=== PATIENT | female | born 2000 | race American Indian/Alaskan Native ===

== ENCOUNTER 2020-09-13 09:31 | Emergency (ER) | payer SELFPAY ==
[2020-09-13 09:37] VITALS: BP 126/74
[2020-09-13 10:15] LABS: Basophils % (Auto) 0.7 % (0.0-1.8); Eosinophils # (Auto) 0.1 K/mm3 (0.0-0.4); Hematocrit 42.1 % (30.3-42.9); Hemoglobin 14.1 gm/dl (10.1-14.3); Lymphocytes # (Auto) 1.8 K/mm3 (1.2-5.4); Lymphocytes % (Auto) 39.6 % (13.4-35.0); Mean Corpuscular HGB Conc 34 % (30-34); Mean Corpuscular Volume 82 fl (79-97); Monocytes # (Auto) 0.4 K/mm3 (0.0-0.8); Monocytes % (Auto) 8.5 % (0.0-7.3); Platelet Count 230 K/mm3 (140-440); Red Blood Count 5.11 M/mm3 (3.65-5.03); Red Cell Distribution Width 13.2 % (13.2-15.2)
[2020-09-13] MEDS ORDERED: LIDOCAINE VISCOUS 2% 15 ML ORAL LIQD PO ONE (10:43)
[2020-09-13] MEDS ORDERED: FAMOTIDINE 20 MG TAB PO ONE (10:43)
[2020-09-13] MEDS ORDERED: ALUM-MAG HYDROXIDE-SIMETHICONE 200-200-20MG/5ML ORAL LIQD 30 ML PO ONE (10:43)
--- NOTE | 2020-09-13 10:44 | Emergency Department Report ---
ED Abdominal Pain HPI - General Chief Complaint: Chest Pain Stated Complaint: ACID REFLUX CHEST PAIN PUI?: No Time Seen by Provider: 09/13/20 10:42 Source: patient Mode of arrival: Ambulatory Limitations: No Limitations - History of Present Illness Initial Comments: Patient is a 19-year-old -[place] female that comes to the ER with epigastric burning. She states that the burning radiates up into her throat. She does have a history of GERD. She has taken nothing for her GERD prior to arrival. But during her initial interview she is asking for a work note because she missed work because of her GERD today. Patient denies any nausea or vomiting. She denies abdominal pain or back pain. She denies vaginal bleeding or discharge. On arrival to [facility] she is nonill and nontoxic on exam - Related Data Previous Rx's Medication Instructions Recorded Last Taken Type Famotidine [Pepcid] 20 mg PO DAILY #30 tablet 09/13/20 Unknown Rx Allergies Allergy/AdvReac Type Severity Reaction Status Date / Time No Known Allergies Allergy Unverified 09/13/20 09:34 ED Review of Systems ROS: Stated complaint: ACID REFLUX CHEST PAIN Other details as noted in HPI Comment: All other systems reviewed and negative ED Past Medical Hx - Past Medical History Previous Medical History?: Yes Hx GERD: Yes Additional medical history: OBESE - Surgical History Past Surgical History?: No - Family History Family history: no significant - Social History Smoking Status: Never Smoker Substance Use Type: None - Medications Home Medications: Home Medications Medication Instructions Recorded Confirmed Last Taken Type Famotidine [Pepcid] 20 mg PO DAILY #30 tablet 09/13/20 Unknown Rx ED Physical Exam - General Limitations: No Limitations General appearance: alert, in no apparent distress - Head Head exam: Present: atraumatic, normocephalic - Eye Eye exam: Present: normal appearance - ENT ENT exam: Present: mucous membranes moist - Neck Neck exam: Present: normal inspection - Respiratory Respiratory exam: Present: normal lung sounds bilaterally. Absent: respiratory distress - Cardiovascular Cardiovascular Exam: Present: regular rate, normal rhythm. Absent: systolic murmur, diastolic murmur, rubs, gallop - GI/Abdominal GI/Abdominal exam: Present: soft, normal bowel sounds - Extremities Exam Extremities exam: Present: normal inspection - Back Exam Back exam: Present: normal inspection - Neurological Exam Neurological exam: Present: alert, oriented X3 - Psychiatric Psychiatric exam: Present: normal affect, normal mood - Skin Skin exam: Present: warm, dry, intact, normal color. Absent: rash ED Course Vital Signs 09/13/20 09:36 Temperature 98.7 F Pulse Rate 74 Respiratory 18 Rate Blood Pressure 126/74 O2 Sat by Pulse 98 Oximetry ED Medical Decision Making - Lab Data Result diagrams: 09/13/20 09:54 09/13/20 09:54 - EKG Data -: EKG Interpreted by Ma EKG shows normal: sinus rhythm Rate: normal - EKG Data When compared to previous EKG there are: no significant change Interpretation: no acute changes - Radiology Data Radiology results: report reviewed, image reviewed - Medical Decision Making Lab Results 09/13/20 09/13/20 Range/Units 09:54 09:54 WBC 4.5 (4.5-11.0) K/mm3 RBC 5.11 H (3.65-5.03) M/mm3 Hgb 14.1 (10.1-14.3) gm/dl Hct 42.1 (30.3-42.9) % MCV 82 (79-97) fl MCH 28 (28-32) pg MCHC 34 (30-34) % RDW 13.2 (13.2-15.2) % Plt Count 230 (140-440) K/mm3 Lymph % (Auto) 39.6 H (13.4-35.0) % [place] % (Auto) 8.5 H (0.0-7.3) % Eos % (Auto) 2.0 (0.0-4.3) % Baso % (Auto) 0.7 (0.0-1.8) % Lymph # (Auto) 1.8 (1.2-5.4) K/mm3 [place] # (Auto) 0.4 (0.0-0.8) K/mm3 Eos # (Auto) 0.1 (0.0-0.4) K/mm3 Baso # (Auto) 0.0 (0.0-0.1) K/mm3 Seg Neutrophils % 49.2 (40.0-70.0) % Seg Neutrophils # 2.2 (1.8-7.7) K/mm3 Lipase 29 (13-60) units/L Vital Signs 09/13/20 09:36 Temperature 98.7 F Pulse Rate 74 Respiratory 18 Rate Blood Pressure 126/74 O2 Sat by Pulse 98 Oximetry Abdominal exam is normal. Patient has no epigastric or right upper quadrant ten derness. She was given a GI cocktail. Labs noted X-ray noted EKG noted. On reexam patient is ambulatory, nonill appearing. She is taking p.o. Patient being discharged home with discharge plan of care. Patient verbalizes understanding of follow-up, diet and medications. - Differential Diagnosis GERD/CHOLEY/PANCREATITIS Critical care attestation.: If time is entered above; I have spent that time in minutes in the direct care of this critically ill patient, excluding procedure time. ED Disposition Clinical Impression: GERD (gastroesophageal reflux disease) Disposition: DC- TO HOME OR SELFCARE Is pt being admited?: No Does the pt Need Aspirin: No Condition: Stable Instructions: Indigestion, [id number] Additional Instructions: BLAND DIET BANANA, RICE, APPLESAUCE TOAST ADVANCE TOLERATED AVOID SPICY FOOD AVOID ALCOHOL LIMIT STRESS DRINK ALOT OF WATER MED ORDERED TODAY FOLLOW UP WITH PCP NEXT WEEK TO BE SURE YOU ARE FEELING BETTER REFERRAL BELOW Prescriptions: Famotidine [Pepcid] 20 mg PO DAILY #30 tablet Referrals: SHELIA URRUTIA MD [Staff Physician] - 3-5 Days Forms: Work/School Release Form(ED) Time of Disposition: 10:51
[2020-09-13 11:06] LABS: Alanine Aminotransferase 11 units/L (7-56); Albumin 4.3 g/dL (3.9-5); Blood Urea Nitrogen 7 mg/dL (7-17); Calcium 9.7 mg/dL (8.4-10.2); Hemolysis Index 4
--- NOTE | 2020-09-13 11:11 | XRay Report ---
CHEST 2 VIEWS INDICATION / CLINICAL INFORMATION: Chest Pain. COMPARISON: None available. FINDINGS: SUPPORT DEVICES: None. HEART / MEDIASTINUM: No significant abnormality. LUNGS / PLEURA: No significant pulmonary or pleural abnormality. No pneumothorax. ADDITIONAL FINDINGS: No significant additional findings. IMPRESSION: 1. No acute findings. Signer Name: Dixon Mcclelland DO Signed: 09/13/2020 11:06 AM Workstation Name: [id number]
--- NOTE | 2020-09-13 11:19 | Electrocardiograph Report ---
[facility] Test Date: 2020-09-13 Test Time: 09:39:48 Pat Name: JAD LIMA Department: Room: Gender: F Home Therapy Clinician: AJ : 2000 Requested By: ED DOC Order Number: [id number] Reading MD: Kate Traore Measurements Intervals [place] Rate: 73 P: 17 W[place]: 142 QRS: 53 QRSD: 79 T: 40 QT: 347 QTc: 384 Interpretive Statements Sinus rhythm No previous ECG available for comparison Electronically Signed On 09-13-2020 11:18:31 EDT by Kate Traore
[2020-09-13 11:52] LABS: BUN/Creatinine Ratio 12
== END 2020-09-13 12:24 | disposition home or self-care (01) ==
LOC: ED 09:31
DX: K21.9 Gastro-esophageal reflux disease without esophagitis (principal); E66.9 Obesity, unspecified; Z79.899 Other long term (current) drug therapy; Z68.20 Body mass index [BMI] 20.0-20.9, adult
CPT/HCPCS: 36415; 71046; 80053; 83690; 85025; 93005